=== PATIENT | female | born 1975 | race Hispanic/Latino ===

== ENCOUNTER 2017-07-07 00:06 | Emergency (ER) | payer SELFPAY ==
[2017-07-07 00:38] VITALS: RESP 20
[2017-07-07 01:04] LABS: SQUAMOUS EPITHIAL 7 /hpf (0-5); URINE BACTERIA RARE (<OCC); URINE BILIRUBIN NEGATIVE (NEGATIVE); URINE BLOOD 1+ (NEGATIVE); URINE CLARITY Hazy (Clear); URINE COLOR Yellow (YELLOW); URINE GLUCOSE (UA) NORMAL (Normal); URINE LEUKOCYTE ESTERASE 2+ Leu/uL (Negative); URINE NITRATE NEGATIVE (NEGATIVE); URINE PROTEIN NEGATIVE (NEGATIVE); URINE UROBILINOGEN NORMAL mg/dL (0.2-1.0)
[2017-07-07 01:05] LABS: HCG,QUALITATIVE URINE NEGATIVE (NEGATIVE)
--- NOTE | 2017-07-07 01:20 | C.PDOC ---
History Of Present Illness Patient is a 41 y/o female who presents to the ED with a complaint of lower back pain for the last few hours s/p lifting a small piece of furniture. Patient also notes concern about a UTI; states she has had one in the past, and this feels similar. Patient denies any nausea, vomiting, fever, incontinence, dysuria, hematuria or weakness. Admits to taking Aspirin MANAGER ED with some relief. No other physical complaints at this time. Time Seen by Provider: 07/07/17 00:40 Chief Complaint (Nursing): Back Pain History Per: Patient History/Exam Limitations: no limitations Onset/Duration Of Symptoms: Hrs (a few hours MANAGER ED) Current Symptoms Are (Timing): Still Present Previous Symptoms: None Associated Symptoms: None. denies: Incontinence, New Weakness Recent travel outside of the [place]: No Past Medical History Reviewed: Historical Data, Nursing Documentation, Vital Signs Vital Signs: Last Vital Signs Temp 99 F 07/07/17 01:55 Pulse 85 07/07/17 01:55 Resp 20 07/07/17 01:55 BP 116/83 07/07/17 01:55 Pulse Ox 96 07/07/17 03:38 - Medical History Other PMH: UTI Surgical History: No Surg Hx Family History: States: No Known Family Hx - Social History Hx Alcohol Use: No Hx Substance Use: No - Immunization History Hx Tetanus Toxoid Vaccination: No Hx Influenza Vaccination: No Hx Pneumococcal Vaccination: No Review Of Systems Constitutional: Negative for: Fever Gastrointestinal: Negative for: Nausea, Vomiting Genitourinary: Positive for: Other (UTI symtoms). Negative for: Incontinence Musculoskeletal: Positive for: Back Pain (lower) Neurological: Negative for: Weakness Physical Exam - Physical Exam Appears: Well, Non-toxic, No Acute Distress Oral Mucosa: Moist Gastrointestinal/Abdominal: Soft, No Tenderness Back: No CVA Tenderness, Other (left paralumbar tenderness) ED Course And Treatment O2 Sat by Pulse Oximetry: 96 Progress Note: Tylenol and flexiril administered. On re-eval, patient reports feeling a little better. Patient is okay with going home and is to be discharged. Disposition Counseled Patient/Family Regarding: Diagnosis, Need For Followup, Rx Given - Disposition Disposition: HOME/ ROUTINE Disposition Time: 01:20 Condition: STABLE Additional Instructions: Increase PO fluids Take meds as directed Return to ER if worse Prescriptions: Cyclobenzaprine [Cyclobenzaprine HCl] 10 mg PO HS #7 tab Ibuprofen [Motrin] 600 mg PO Q6H #20 tab Nitrofurantoin Macrocrystals [Macrobid] 1 cap PO BID #14 cap Instructions: Urinary Tract Infection in Women (ED), Acute Low Back Pain (ED) Forms: [facility] (Kazakh) - Clinical Impression Clinical Impression: Low back strain, Urinary tract infection - Scribe Statement The provider has reviewed the documentation as recorded by the Scribe Nicole Diaz All medical record entries made by the Scribe were at my direction and personally dictated by me. I have reviewed the chart and agree that the record accurately reflects my personal performance of the history, physical exam, medical decision making, and the department course for this patient. I have also personally directed, reviewed, and agree with the discharge instructions and disposition.
[2017-07-07 02:29] VITALS: BP 116/83; PULSE 85; TEMP 99
[2017-07-07 03:36] VITALS: O2SAT 96
== END 2017-07-07 02:12 | disposition home or self-care (01) ==
LOC: C.ER 00:06
DX: S39.012A Strain of muscle, fascia and tendon of lower back, initial encounter (principal); X50.9XXA Other and unspecified overexertion or strenuous movements or postures, initial encounter; N39.0 Urinary tract infection, site not specified

== ENCOUNTER 2017-08-10 10:47 | Emergency (ER) | payer MEDICAID, OTHER ==
[2017-08-10 12:26] VITALS: PULSE 76
[2017-08-10 14:25] LABS: SQUAMOUS EPITHIAL < 1 /hpf (0-5); URINE BACTERIA RARE (<OCC); URINE BILIRUBIN NEGATIVE (NEGATIVE); URINE BLOOD 1+ (NEGATIVE); URINE CLARITY Clear (Clear); URINE COLOR Straw (YELLOW); URINE GLUCOSE (UA) NORMAL (Normal); URINE LEUKOCYTE ESTERASE TRACE Leu/uL (Negative); URINE PROTEIN NEGATIVE (NEGATIVE); URINE UROBILINOGEN NORMAL mg/dL (0.2-1.0)
[2017-08-10 14:26] LABS: HCG,QUALITATIVE URINE NEGATIVE (NEGATIVE)
[2017-08-10 14:30] LABS: BASO % 0.5 % (0.0-2.0); EOS # 0.2 K/uL (0.0-0.7); EOS % 1.8 % (0.0-4.0); HEMOGLOBIN 11.9 g/dL (11.0-16.0); LYMPH # 3.4 K/uL (1.0-4.3); LYMPH % 32.9 % (20.0-40.0); MEAN CELL VOLUME 78.6 fL (81.0-99.0); MEAN CORPUSCULAR HEMOGLOBIN 26.3 pg (27.0-31.0); MEAN CORPUSCULAR HGB CONC 33.5 g/dL (33.0-37.0); MEAN PLATELET VOLUME 7.7 fL (7.2-11.7); MONO # 0.7 K/uL (0.0-0.8); MONO % 6.7 % (0.0-10.0); NEUT # 5.9 K/uL (1.8-7.0); NEUT % 58.1 % (50.0-75.0); RBC 4.53 Mil/uL (3.80-5.20); RED CELL DISTRIBUTION WIDTH 14.6 % (11.5-14.5); WHITE BLOOD COUNT 10.2 K/uL (4.8-10.8)
--- NOTE | 2017-08-10 14:34 | C.PDOC ---
History Of Present Illness 41-year-old female, presents to the emergency department with complaints of lower back/left-flank pain for the past several weeks. Patient seen in ED for same complaint last month, and diagnosed with UTI. She was discharged and seen outpatient by an control valve technician who wrote patient an Rx for a CT scan, but patient has not followed up. She comes in today becomes symptoms have been worsening. Patient also notes urinary frequency and urgency. Patient denies any nausea, vomiting, fever, incontinence, dysuria, hematuria or weakness. No other physical complaints at this time. Time Seen by Provider: 08/10/17 13:02 Chief Complaint (Nursing): Abdominal Pain History Per: Patient History/Exam Limitations: no limitations Onset/Duration Of Symptoms: Days Current Symptoms Are (Timing): Still Present Severity: Moderate Past Medical History Reviewed: Historical Data, Nursing Documentation, Vital Signs Vital Signs: Last Vital Signs Temp 98.2 F 08/10/17 12:21 Pulse 76 08/10/17 12:21 Resp 16 08/10/17 12:21 BP 135/84 08/10/17 12:21 Pulse Ox 96 08/10/17 15:11 Family History: States: No Known Family Hx - Social History Hx Alcohol Use: No Hx Substance Use: No - Immunization History Hx Tetanus Toxoid Vaccination: No Hx Influenza Vaccination: No Hx Pneumococcal Vaccination: No Review Of Systems Except As Marked, All Systems Reviewed And Found Negative. Constitutional: Negative for: Fever, Chills, Malaise Cardiovascular: Negative for: Chest Pain, Light Headedness Respiratory: Negative for: Shortness of Breath Gastrointestinal: Negative for: Nausea, Vomiting, Abdominal Pain, Diarrhea Genitourinary: Positive for: Frequency ((+)urgency). Negative for: Hematuria, Vaginal Discharge, Vaginal Bleeding, Pelvic Pain Musculoskeletal: Positive for: Back Pain Neurological: Negative for: Weakness, Numbness, Headache, Dizziness Physical Exam - Physical Exam Appears: Non-toxic, No Acute Distress Skin: Warm, Dry, No Rash Head: Normacephalic Eye(s): bilateral: Normal Inspection, PERRL Nose: Normal Oral Mucosa: Moist Lips: Normal Appearing Neck: Normal ROM Chest: Symmetrical Cardiovascular: Rhythm Regular, No Murmur Respiratory: Normal Breath Sounds, No Accessory Muscle Use Gastrointestinal/Abdominal: Soft, No Tenderness, No Guarding Back: CVA Tenderness (Left) Extremity: Normal ROM Neurological/Psych: Oriented x3, Normal Speech ED Course And Treatment - Laboratory Results Result Diagrams: 08/10/17 14:23 08/10/17 14:23 O2 Sat by Pulse Oximetry: 96 (RA) Pulse Ox Interpretation: Normal Reevaluation Time: 17:15 Reassessment Condition: Improved Medical Decision Making Medical Decision Making: Prior Visits Notes and records from previous visits were reviewed. Patient seen in ER for similar complaint on 07/07/17; Pt diagnosed with UTI and given Rx for Motrin and Macrobid Plan: * CT Abd/Pel * BMP * CBC * Flexeril, IVFs, Toradol, Tylenol * Urine Culture * UA/UPreg * Reassess and Disposition Disposition Counseled Patient/Family Regarding: Studies Performed, Diagnosis, Need For Followup, Rx Given - Disposition Referrals: YOUR,PMD [Other] Disposition: HOME/ ROUTINE Disposition Time: 17:15 Condition: IMPROVED Instructions: Ovarian Cyst (ED) Forms: [facility] (Czech) - Clinical Impression Clinical Impression: Ruptured ovarian cyst, Abdominal pain - Scribe Statement The provider has reviewed the documentation as recorded by the Scribe (Gilbert Rodney) All medical record entries made by the Scribe were at my direction and personally dictated by me. I have reviewed the chart and agree that the record accurately reflects my personal performance of the history, physical exam, medical decision making, and the department course for this patient. I have also personally directed, reviewed, and agree with the discharge instructions and disposition.
[2017-08-10] MEDS ORDERED: Sodium Chloride 0.9% 1,000 ML IV ONE (14:36)
[2017-08-10 14:49] LABS: BLOOD UREA NITROGEN 12 mg/dL (7-17); CALCIUM 9.6 mg/dl (8.6-10.4); GFR AFRICAN-AMERICAN > 60; GFR NON-AFRICAN AMERICAN > 60
[2017-08-10] MEDS ORDERED: Iodixanol 320 MG/ML 100 ML BOTTLE IV ONE (15:23)
--- NOTE | 2017-08-10 16:42 | CT ---
PROCEDURE: CT Abdomen and Pelvis with contrast HISTORY: L SIDE PAIN COMPARISON: None. TECHNIQUE: Contrast dose: 100 mL Visipaque 320 Radiation dose: Total exam DLP = 1021.02 mGy-cm. This CT exam was performed using one or more of the following dose reduction techniques: Automated exposure control, adjustment of the mA and/or kV according to patient size, and/or use of iterative reconstruction technique. FINDINGS: LOWER THORAX: Unremarkable. LIVER: Unremarkable. No gross lesion or ductal dilatation. GALLBLADDER AND BILE DUCTS: Mild diffuse thickening of the gallbladder wall. No calcified gallstones. Nonspecific. PANCREAS: Unremarkable. No gross lesion or ductal dilatation. SPLEEN: Unremarkable. ADRENALS: Unremarkable. No mass. KIDNEYS AND URETERS: Unremarkable. No hydronephrosis. No solid mass. VASCULATURE: Unremarkable. No aortic aneurysm. BOWEL: Unremarkable. No obstruction. No gross mural thickening. APPENDIX: Normal appendix. PERITONEUM: No ascites LYMPH NODES: Unremarkable. No enlarged lymph nodes. BLADDER: Unremarkable. REPRODUCTIVE: Unremarkable uterus. There is an irregularly-shaped peripherally enhancing 2.2 cm structure within the left ovary consistent with ruptured or involuting follicular cyst. No adnexal mass. BONES: No acute fracture. OTHER FINDINGS: None. IMPRESSION: Ruptured or involuting 2.2 cm left ovarian follicular cyst. Mild diffuse nonspecific mural thickening of the gallbladder. No calcified gallstones. No additional abnormality
[2017-08-10 17:39] VITALS: BP 104/73; RESP 18; TEMP 98; O2SAT 100
== END 2017-08-10 17:55 | disposition home or self-care (01) ==
LOC: C.ER 10:47
DX: N83.202 Unspecified ovarian cyst, left side (principal); R10.9 Unspecified abdominal pain
CPT/HCPCS: 74177; 80048; 81001; 82948; 84703; 85025; 87086; 96361; 96374; 99284; J1885; J7040; Q9967